=== PATIENT | male | born 1985 | race Caucasian/White ===

== ENCOUNTER 2022-12-01 17:15 | Emergency (ER) | payer SELFPAY ==
[~2022-12-01] VITALS: Ht 165.1 cm; Wt 66.4 kg
[2022-12-01 17:48] VITALS: BP 127/90
[2022-12-01 18:01] VITALS: BP 101/65
[2022-12-01 19:13] VITALS: BP 126/84
[2022-12-01 19:15] VITALS: BP 127/106
[2022-12-01] MEDS ORDERED: KEFLEX500 MG PO (19:46)
[2022-12-01] MEDS ORDERED: LORTAB 1010 MG PO (21:08)
[2022-12-01 21:23] VITALS: BP 138/79
== END 2022-12-01 21:36 | disposition home or self-care (01) | DRG 605 ==
LOC: ED 17:15
PROC: 0HQFXZZ Repair Right Hand Skin, External Approach (ICD-10-PCS; principal; 2022-12-01)
DX: S61.210A Laceration without foreign body of right index finger without damage to nail, initial encounter (principal); S62.610A Displaced fracture of proximal phalanx of right index finger, initial encounter for closed fracture; W29.3XXA Contact with powered garden and outdoor hand tools and machinery, initial encounter; Y93.H3 Activity, building and construction; Y92.007 Garden or yard of unspecified non-institutional (private) residence as the place of occurrence of the external cause

== ENCOUNTER 2022-12-03 08:57 | Emergency (ER) | payer SELFPAY ==
[2022-12-03] VITALS (8 sets, daily range): BP systolic 128–145; BP diastolic 88–110
[~2022-12-03] VITALS: Ht 165.1 cm; Wt 68.0 kg
[~2022-12-03 08:57] MED LIST: KEFLEX500 MG PO; LORTAB 1010 MG PO
[2022-12-03] MEDS ORDERED: OMNI-PAC300 MG PO (10:09)
== END 2022-12-03 10:48 | disposition home or self-care (01) | DRG 950 ==
LOC: ED 08:57
DX: S61.210D Laceration without foreign body of right index finger without damage to nail, subsequent encounter (principal); X58.XXXD Exposure to other specified factors, subsequent encounter

== ENCOUNTER 2022-12-05 10:44 | Emergency (ER) | payer SELFPAY ==
[~2022-12-05] VITALS: Ht 165.1 cm; Wt 64.6 kg
[~2022-12-05 10:44] MED LIST changes: +OMNI-PAC300 MG PO
[2022-12-05 11:39] LABS: BASO% 0.9 % (0-3); EOS% 3.8 % (0-8); HEMATOCRIT 41.8 % (39.0-50.0); HEMOGLOBIN 14.2 g/dl (14.0-18.0); IMMATURE GRANULOCYTES 0.2 % (0.0-5.0); LYMPH% 21.1 % (15-41); MEAN CELL VOLUME 86.5 fL CALC (80.0-100.0); MEAN CORPUSCULAR HGB 29.4 pG CALC (26.0-32.0); MONO% 6.1 % (2-13); NEUT# 4.32 thou/uL (1.82-7.42); NEUT% 67.9 % (42-76); RED BLOOD COUNT 4.83 mill/uL (4.70-6.10); RED CELL DISTRI WIDTH 12.9 % (11.5-15.5)
[2022-12-05 11:43] LABS: ALBUMIN 4.5 g/dL (3.2-5.0); ALKALINE PHOSPHATASE 88 u/l (38-126); ANION GAP 15 (6-22 (CALC)); BILIRUBIN, TOTAL 1.1 mg/dL (0.2-1.3); BUN 17 mg/dL (9-20); BUN/CREATININE RATIO 21 (12-20 (CALC)); CARBON DIOXIDE 25 mmol/l (22-30); CHLORIDE 97 mmol/l (95-108); CREATININE 0.8 mg/dL (0.7-1.3); GFR FOR AFR.AMER. > 60 ML/MIN (>=60 (CALC)); GFR OTHER RACES > 60 ML/MIN (>=60 (CALC)); POTASSIUM 4.3 mmol/l (3.5-5.1); SGOT/AST 36 u/l (17-59); SODIUM 133 mmol/l (137-146); TOTAL PROTEIN 7.4 g/dL (6.3-8.2)
[2022-12-05] MEDS ORDERED: METFORMIN HCL500 M1 PO (11:55)
[2022-12-05 11:58] VITALS: BP 129/80
== END 2022-12-05 12:03 | disposition home or self-care (01) | DRG 950 ==
LOC: ED 10:44
PROVIDERS: Family Medicine
DX: S61.411D Laceration without foreign body of right hand, subsequent encounter (principal); X58.XXXD Exposure to other specified factors, subsequent encounter; E11.9 Type 2 diabetes mellitus without complications; T38.3X6A Underdosing of insulin and oral hypoglycemic [antidiabetic] drugs, initial encounter; Z91.128 Patient's intentional underdosing of medication regimen for other reason

== ENCOUNTER 2022-12-10 09:25 | Emergency (ER) | payer SELFPAY ==
[~2022-12-10] VITALS: Ht 162.6 cm; Wt 64.0 kg
[~2022-12-10 09:25] MED LIST changes: +METFORMIN HCL500 M1 PO
[2022-12-10 10:03] VITALS: BP 128/76
== END 2022-12-10 10:08 | disposition home or self-care (01) | DRG 950 ==
LOC: ED 09:25
DX: S61.411D Laceration without foreign body of right hand, subsequent encounter (principal); X58.XXXD Exposure to other specified factors, subsequent encounter